=== PATIENT | male | born 1970 | race Caucasian/White ===

== ENCOUNTER → 2021-02-17 | Outpatient (CLI) | payer BC ==
--- NOTE | 2021-02-17 09:22 | CT ---
EXAMINATION TYPE: CT sinus wo con DATE OF EXAM: 02/17/2021 COMPARISON: CT facial bones June 07, 2012 HISTORY: chronic sinusitis per order. Symptoms of headache and dizziness. CT DLP: 679.3 mGycm. Automated Exposure Control for Dose Reduction was Utilized. TECHNIQUE: CT scan of the sinuses is performed without contrast, axial images are obtained, coronal r eformatted images are also reviewed. FINDINGS: Mild mucosal thickening inferior left maxillary sinus with areas impacted left mandibular m olar root canal with suspected reformed sinus floor. Remainder paranasal sinuses clear without suspic ious opacification or air-fluid levels. The ostiomeatal complex is patent bilaterally on: May 03. Visualized portion of mastoid air cells show no abnormal opacification. The globes are intact bilate rally. Old nasal bridge fractures are now present with some right-sided septal deviation. IMPRESSION: No acute sinusitis currently.
== END | disposition home or self-care (01) ==
LOC: RADCTMAIN 06:44
PROVIDERS: ATTEND Otolaryngology
DX: J32.9 Chronic sinusitis, unspecified (principal)
CPT/HCPCS: 70486

== ENCOUNTER → 2021-03-02 | Outpatient (CLI) | payer BC ==
--- NOTE | 2021-03-02 16:49 | CONS ---
CONSULTATION 50-year-old gentleman has been evaluated in [facility] for possible obstructive sleep apnea-hypopnea syndrome. HISTORY OF PRESENT ILLNESS SLEEP-WAKE EVALUATION: SLEEP SCHEDULE: Patient usual sleep schedule from 9:00 pm to 6:00 am basically 7 days a week. FALLING ASLEEP: He does not have any problems with falling asleep, although has TV set in bedroom. DURING SLEEP: He sleeps in different position usually back and side. He snores very loudly and he wakes up from sleep once with nocturia. Positive history of grinding teeth sleepwalking and sleep talking. DURING THE DAY/SLEEP WAKE EVALUATION: In the morning, the patient wakes up tired, has episodes of depression and anxiety. [place] Sleepiness Scale is 2. Usually patient does not take any naps. Positive history of hypnagogic hallucination. No history of sleep paralysis or cataplexy. PAST MEDICAL HISTORY: Positive for hypothyroidism, hyperlipidemia, depression. PAST SURGICAL HISTORY: Appendectomy, left ankle surgery. MEDICATIONS: Levothyroxine, Zetia. FAMILY HISTORY: Hypertension, sinuses problems, diabetes. REVIEW OF SYSTEMS: Extremely loud snoring, awakenings from sleep. PHYSICAL EXAMINATION: GENERAL: gentleman without distress. BP 131/88, HR 72, RR 16, height 5 feet 8-1/4 inches, weight 245.2 pounds, body mass index 37.0, temperature 97.5, oxygen saturation at room air 94%. OROPHARYNX: Extremely low position of soft palate, Mallampati 4. NECK is wide 18-3/4 inches in circumference. Neck: Supple, no JVD. Thyroid is not palpable. LUNGS: Clear to percussion and to auscultation. Good air exchange. No wheezing or rhonchi. HEART: S1, S2 regular. No murmurs, gallops, or rubs. ABDOMEN: Soft and nontender. Bowel sounds are present. No organomegaly appreciated. EXTREMITIES: No clubbing or cyanosis. FIXED WING PILOT: Awake, alert, and oriented X3. Cranial nerves 2 to 7 intact. There is no fasciculation or atrophy. noted. No focal deficits observed. IMPRESSION: 1. Loud snoring, awakenings from sleep with nocturia, extremely low position of soft palate, Mallampati 4, wide neck 18-3/4 inches in circumference, possible obstructive sleep apnea-hypopnea syndrome. 2. Hypothyroidism. 3. Hyperlipidemia. 4. Status post appendectomy. 5. Status post left ankle surgery. 6. History of depression. PLAN: 1. Home sleep apnea test for evaluation of patient breathing during sleep. 2. CPAP/BiPAP titration if sleep study confirms obstructive sleep apnea-hypopnea syndrome. 3. Preferable position during sleep on the side. 4. No driving if patient feels any sleepiness. 5. I will see patient for follow up visit to explain results of testing and following plan. Thank you very much for referring this patient for consultation. Sincerely, Dejon Esteves MD, PhD, FAASM Diplomat of [employer] Sleep Medicine Board of [employer] [facility] [place] [facility] / KARLEEN: [id number] /
== END ==
LOC: SLEEP 15:24
PROVIDERS: ATTEND Internal Medicine
DX: G47.33 Obstructive sleep apnea (adult) (pediatric) (principal); E03.9 Hypothyroidism, unspecified; E78.5 Hyperlipidemia, unspecified; Z48.815 Encounter for surgical aftercare following surgery on the digestive system
CPT/HCPCS: 99211

== ENCOUNTER 2021-10-26 10:26 | Day surgery (SDC) | payer BC ==
[~2021-10-26 10:26] MED LIST: CLINDAMYCIN 600 MG in DEXTROSE 5% IN WATER 50 ML IVPB PRN; DEXAMETHASONE SOD PHOSPHATE 4 MG/ML 1 ML VIAL IV ONE; DEXAMETHASONE SOD PHOSPHATE 4 MG/ML 1 ML VIAL IV PRN; FAMOTIDINE 20 MG/2 ML VIAL IV PRN; HYDROmorphone 0.5 MG/0.5 ML SYRINGE IVP PRN; LACTATED RINGERS 1,000 ML IV SCH; LIDOCAINE 1% (10MG/ML) FOR IV START INTRADERMA PRN; ONDANSETRON 4 MG/2 ML VIAL IVP PRN
[2021-10-26] MEDS ORDERED: LACTATED RINGERS 1,000 ML IV ONE (11:06)
[2021-10-26] MEDS: OXYMETAZOLINE 0.05% NASL SPRAY 1 SPRAY BOTTLE EA NOSTRIL PRN ×5 (11:10→11:30)
[2021-10-26] MEDS ORDERED: LIDOCAINE 1%-EPI 1:100,000 20 ML VIAL SUBMUCOSAL ONE ×2 (13:13)
[2021-10-26] MEDS ORDERED: SUCCINYLCHOLINE CHLORIDE 200 MG/10 ML VIAL IV ONE (13:32)
[2021-10-26] MEDS ORDERED: fentaNYL (PF) 50 MCG/ML 2 ML AMP ONE (13:32)
[2021-10-26] MEDS ORDERED: NALOXONE 0.4 MG/ML 1 ML VIAL ONE (13:32)
[2021-10-26] MEDS ORDERED: MIDAZOLAM 2 MG/2 ML VIAL ONE (13:32)
[2021-10-26] MEDS ORDERED: PROPOFOL 10 MG/ML 20 ML VIAL IV ONE (13:32)
--- NOTE | 2021-10-26 14:29 | P.OP ---
Date of Procedure: 10/26/21 Preoperative Diagnosis: Deviated nasal septum Inferior turbinate hypertrophy Left chronic maxillary sinusitis Postoperative Diagnosis: Same Procedure(s) Performed: Septoplasty Outfractured and submucous resection of the inferior turbinates left sided endoscopic sinus surgery including left maxillary antrostomy Anesthesia: GERARDO Surgeon: Gregorio Leiva Estimated Blood Loss (ml): 5 Pathology: other (Nasal septal bone and cartilage and sinus contents) Condition: stable Disposition: PACU Indications for Procedure: This 51-year-old white male who has difficulties with chronic nasal airway obstruction and also has had difficulties with left maxillary sinusitis based on symptoms and CT. Operative Findings: Nasal septum deviated to the left chiefly anteriorly but also a spur to the left posteriorly inferior turbinate hypertrophy bilaterally. Maxillary ostium on the left was obstructed with mild mucosal thickening in the left maxillary sinus Description of Procedure: The patient was brought into the operative suite and placed in a supine position. The patient underwent induction of general anesthesia with oral endotracheal intubation without difficulty. The patient was prepped and draped in the usual aseptic fashion with the orbits in the operating field for monitoring to the case and the computed tomography scan was on the computer screen for review throughout the case. 1% lidocaine with 1 :100,000 epinephrine was infused submucosally into both sides of the nasal septum as well as the lateral nasal wall and anterior tips of the middle turbinates. While this was taking vasoconstrictive effect the inferior turbinates were infractured with Mcallister elevator and partial submucous resection of the inferior turbinates was performed with a portion of the submucosal soft tissue and the inferior turbinate bone removed with Coblation device. The inferior turbinates were then outfractured with the Mcallister elevator. A left hemitransfixion incision was then made with the mucoperichondrial and mucoperiosteal flap on the left elevated. The bony cartilaginous junction was disarticulated and the mucoperiosteal flap on the right was elevated. Bony nasal septal deformities were removed with Jacob forceps and an inferior cartilaginous strip was removed leaving a full 1.5 cm caudal strut. Checking intranasally this corrected the nasoseptal deformities and the hemitransfixion incision was closed with a running 4-0 chromic suture. Full 0 endoscopic examination is performed bilaterally. Beginning on the left, the middle turbinate was medialized. The maxillary ostium was located with a ballpoint probe and an infundibulotomy was performed followed by uncinectomy. The maxillary antrostomy was enlarged at the expense of the anterior and posterior fontanelle taking care anteriorly not to injure the lacr imal bone. The maxillary sinus was evaluated with 30 and 70 endoscope . [Xerogel nasal dressing was placed in the middle meatus bilaterally under direct visualization]. Bilateral [place] airway splints coated with bacitracin ointment were placed and sutured transseptally with a 4-0 nylon suture. The patient was suctioned in oral gastric fashion and was allowed to emerge from general anesthesia having tolerated procedure well and was extubated in the operating suite and transferred to the postoperative recovery area in satisfactory condition.
[2021-10-26] MEDS ORDERED: NALOXONE 0.4 MG/ML 1 ML VIAL IVP ONE (14:48)
[2021-10-26] MEDS ORDERED: SODIUM CHLORIDE 0.9% 1,000 ML IV ONE ×2 (15:00)
[2021-10-26 15:03] VITALS: RESP 16; TEMP 98
[2021-10-26 16:05] VITALS: BP 125/75; PULSE 80
== END 2021-10-26 16:20 | disposition home or self-care (01) ==
LOC: OR 10:26
PROVIDERS: ATTEND Otolaryngology
DX: J34.2 Deviated nasal septum (principal); J34.3 Hypertrophy of nasal turbinates; J32.0 Chronic maxillary sinusitis; J30.1 Allergic rhinitis due to pollen; R06.83 Snoring; E07.9 Disorder of thyroid, unspecified; Z98.890 Other specified postprocedural states; Z90.49 Acquired absence of other specified parts of digestive tract; Z83.3 Family history of diabetes mellitus; Z83.518 Family history of other specified eye disorder; Z82.69 Family history of other diseases of the musculoskeletal system and connective tissue; Z79.890 Hormone replacement therapy; Z88.0 Allergy status to penicillin
CPT/HCPCS: 88305; 88300; 30520; 30140; 31256; J2250; J0330; J1100; J2310; J2405; J3010; J2704